=== PATIENT | male | born 1990 | race Two or more races ===

== ENCOUNTER 2020-02-07 11:17 | Emergency (ER) | payer MEDICAID ==
[2020-02-07] MEDS ORDERED: Lidocaine 1% 20 ML MDV INFILT ONE (11:18)
--- NOTE | 2020-02-07 11:45 | EDM.PDOC ---
ED HPI GENERAL MEDICAL PROBLEM - General Chief Complaint: Upper Extremity Injury/Pain Stated Complaint: finger laceration Time Seen by Provider: 02/07/20 11:40 Source of Information: Reports: Patient History Limitations: Reports: No Limitations - History of Present Illness INITIAL COMMENTS - FREE TEXT/NARRATIVE: 29-year-old male who was placing a trailer with [employer] onto a hitch and the hitch slipped forward and injured his proximal, palmar right fifth finger. It occurred approximately 11 AM today. He reports that the pain is now 7/10 and it is sharp and stinging. He has full active range of motion in the right hand and right fifth finger. The bleeding has been controlled with direct pressure. He has normal sensation in his fingers. There were no other injuries. There are no other associated signs or symptoms. There are no other modifying factors. Onset: Today (11 AM) Duration: Constant Location: Reports: Upper Extremity, Right (Right fifth finger) Quality: Reports: Sharp (And stinging) Improves with: Reports: Rest Worsens with: Reports: Other (Palpation) Context: Reports: Trauma Associated Symptoms: Reports: No Other Symptoms Treatments GENERAL COUNSEL: Reports: Other (see below) (Nothing) - Related Data Allergies Allergy/AdvReac Type Severity Reaction Status Date / Time No Known Allergies Allergy Verified 02/07/20 12:30 Past Medical History - Past Health History Medical/Surgical History: Denies Medical/Surgical History - Past Surgical History Other Surgical History Comment: No previous surgeries. Social & Family History - Tobacco Use Smoking Status *Q: Unknown Ever Smoked (Nonsmoker) - Alcohol Use Alcohol Use History: Yes Alcohol Use Frequency: Socially - Living Situation & Occupation Occupation: Employed (He is a [employer].) Review of Systems - Review of Systems Review Of Systems: See Below Constitutional: Reports: No Symptoms (Last tetanus immunization was one month ago so he is up-to-date.) Eyes: Reports: No Symptoms Ears: Reports: No Symptoms Nose: Reports: No Symptoms Mouth/Throat: Reports: No Symptoms Respiratory: Reports: No Symptoms Cardiovascular: Reports: No Symptoms GI/Abdominal: Reports: No Symptoms Genitourinary: Reports: No Symptoms Musculoskeletal: Reports: Hand Pain Skin: Reports: Wound (Laceration to right fifth finger) Neurological: Reports: No Symptoms ED EXAM, GENERAL - Physical Exam Exam: See Below Exam Limited By: No Limitations General Appearance: Alert, WD/WN, Mild Distress Eye Exam: Bilateral Eye: EOMI, Normal Inspection Ears: Normal External Exam, Hearing Grossly Normal Ear Exam: Bilateral Ear: Auricle Normal Nose: Normal Inspection, Normal Mucosa, No Blood Throat/Mouth: Normal Inspection, Normal Oropharynx, Normal Voice, No Airway Compromise Head: Atraumatic, Normocephalic Neck: Normal Inspection, Supple, Non-Tender, Full Range of Motion Respiratory/Chest: No Respiratory Distress, Lungs Clear, Normal Breath Sounds, No Accessory Muscle Use, Chest Non-Tender Cardiovascular: Normal Peripheral Pulses, Regular Rate, Rhythm, No Murmur Peripheral Pulses: 2+: Radial (L), Radial (R) GI/Abdominal: Normal Bowel Sounds, Soft, Non-Tender Back Exam: Normal Inspection Extremities: Normal Range of Motion, No Pedal Edema, Normal Capillary Refill, Other (Laceration to right fifth finger but he has no bony deformity and full range of motion in the right hand) Neurological: Alert, Oriented, CN II-XII Intact, Normal Cognition, No Motor/ Sensory Deficits Psychiatric: Normal Affect Skin Exam: Warm, Dry, No Rash, Ecchymosis, Wound/Incision ED TRAUMA EXTREMITY PROCEDURES - Laceration/Wound Repair Right Proximal Ventral Digit - 5th (Baby) Lac/Wound Length In cm: 6 Appearance: Subcutaneous, Moderately Contaminated Distal NVT: Neuro & Vascular Intact, No Tendon Injury Anesthetic Type: Local Local Anesthesia - Lidocaine (Xylocaine): 1% Plain Local Anesthetic Volume: Other (8 ml) Skin Prep: Saline Saline Irrigation (cc's): 750 Exploration/Debridement/Repair: Wound Explored, In a Bloodless Field, Explored to Base, No Foreign Material Found Closed With: Sutures Suture Size: 4-0 # of Sutures: 8 Suture Type: Nylon, Interrupted, Simple Drain Placement: No Sterile Dressing Applied: Nurse Tetanus Status Addressed: Yes (Patient was up-to-date with tetanus immunization status.) Complications: No Progress/Comments: After informed verbal consent, proximal right fifth finger laceration was repaired as above. There was no tendon injury. He had full function in his right fifth finger and hand. No bony deformity or abnormality noted. Course - Orders/Labs/Meds Meds: Medications Discontinued Medications Generic Name Dose Route Start Last Admin Trade Name Freq PRN Reason Stop Dose Admin Bacitracin 1 dose 02/07/20 12:30 Bacitracin Oint 1 Gm TOP 02/07/20 12:31 ONETIME ONE - Re-Assessments/Exams Free Text/Narrative Re-Assessment/Exam: 02/07/20 12:30: The right fifth finger laceration was repaired and the patient tolerated this well. An appropriate supportive dressing was applied by the nursing staff with bacitracin. Precautions and reasons for return to the emergency department were discussed with the patient to his discharge and were detailed in his discharge instructions. Departure - Departure Time of Disposition: 12:40 Disposition: Home, Self-Care 01 Condition: Good (Improved) Clinical Impression: Contusion of right hand, initial encounter Laceration of finger, little Qualifiers: Encounter type: initial encounter Damage to nail status: without damage Foreign body presence: without foreign body Laterality: right Qualified Code(s) : S61.216A - Laceration without foreign body of right little finger without damage to nail, initial encounter - Discharge Information Instructions: Hand Contusion, [id number], Crush Injury of the Hand, Easy-to- Read, Laceration Care, Adult, [id number], Sutures, [place], or Adhesive Wound Closure, [id number] Forms: ED Department Discharge Additional Instructions: Do not get the wound wet for the next 3 days. After 3 days, you may get the wound wet but do not immerse the wound in water until the sutures are out. Suture removal in 10 days. No strenuous use with the right hand for the next 2 weeks and be careful using your hand for the next month. Back to the emergency department for marked increase in pain, redness, increased swelling or any other concerning sign or symptom. Sepsis Event Note - Focused Exam Date Exam was Performed: 02/07/20 Time Exam was Performed: 13:19
[2020-02-07] MEDS ORDERED: Bacitracin Oint 1 GM U/D Packet TOP ONE (12:30)
== END 2020-02-07 12:55 | disposition home or self-care (01) ==
LOC: FB.ED 11:17
DX: S61.216A Laceration without foreign body of right little finger without damage to nail, initial encounter (principal); S60.221A Contusion of right hand, initial encounter; W01.0XXA Fall on same level from slipping, tripping and stumbling without subsequent striking against object, initial encounter
CPT/HCPCS: 12002; 99282; J2001

== ENCOUNTER 2021-04-03 04:50 | Emergency (ER) | payer MEDICAID ==
--- NOTE | 2021-04-03 05:17 | EDM.PDOC ---
ED HPI GENERAL MEDICAL PROBLEM - General Chief Complaint: Eye Problems Stated Complaint: CANT SEE AND EYES ARE BURNING Time Seen by Provider: 04/03/21 05:11 Source of Information: Reports: Patient History Limitations: Reports: No Limitations - History of Present Illness INITIAL COMMENTS - FREE TEXT/NARRATIVE: Awoke with bilateral blurred vision, eye burning and watering this morning. Patient does wear contacts, but took them out before sleep. He denies injury to the eyes. Onset: Today Bilateral Eye Pain Score (Numeric/FACES): 2 - Related Data Allergies Allergy/AdvReac Type Severity Reaction Status Date / Time No Known Allergies Allergy Verified 04/03/21 05:08 Home Meds: Home Meds NK [No Known Home Meds] 02/07/20 [History] Past Medical History - Past Health History Medical/Surgical History: Denies Medical/Surgical History - Past Surgical History Other Surgical History Comment: No previous surgeries. Social & Family History - Living Situation & Occupation Occupation: Employed (He is a [employer].) ED ROS GENERAL - Review of Systems Review Of Systems: Comprehensive ROS is negative, except as noted in HPI. ED EXAM GENERAL W FULL EYE - Physical Exam Exam: See Below Exam Limited By: No Limitations General Appearance: Alert, WD/WN, No Apparent Distress Eye Exam: Bilateral Eye: EOMI, PERRL IOP Measure with (Equipment): Other ([facility] not equipped with a Tonometer) Eyelids: Bilateral: Normal Appearance Conjunctiva & Sclera: Bilateral: Injected Cornea Exam: Bilateral: Normal Appearance, Examined with Flourescein Extraocular Movements: Bilateral: Intact Pupils: Normal Accommodation Pupillary Size: Bilateral: 3 mm Pupillary Reaction: Bilateral: Brisk Anterior Chamber: Bilateral: Normal Appearance Posterior Chamber: Bilateral: Unable to Examine Ears: Normal External Exam Nose: Normal Inspection Throat/Mouth: No Airway Compromise Head: Atraumatic, Normocephalic Respiratory/Chest: No Respiratory Distress Neurological: Alert, Normal Cognition Psychiatric: Normal Affect, Normal Mood Skin Exam: Warm, Dry, Intact Course - Vital Signs Last Recorded V/S: Last Vital Signs Temp 36.7 C 04/03/21 05:08 Pulse 53 L 04/03/21 05:08 Resp 18 04/03/21 05:08 BP 129/70 04/03/21 05:08 Pulse Ox 98 04/03/21 05:08 - Re-Assessments/Exams Free Text/Narrative Re-Assessment/Exam: 04/03/21 05:15 Sent home with Sulfacetamide ophthalmic laxmi'n 10% instructed to instill 1-2 gtt qid x 7 days. Departure - Departure Time of Disposition: 05:14 Disposition: Home, Self-Care 01 Condition: Good Clinical Impression: Conjunctivitis Qualifiers: Conjunctivitis type: acute Acute conjunctivitis type: unspecified Laterality: bilateral Qualified Code(s): H10.33 - Unspecified acute conjunctivitis, bilateral - Discharge Information *PRESCRIPTION DRUG MONITORING PROGRAM REVIEWED*: No *COPY OF PRESCRIPTION DRUG MONITORING REPORT IN PATIENT ZAIRA: Not Applicable Instructions: Bacterial Conjunctivitis, Adult, Vnqq-[id number] Forms: ED Department Discharge Additional Instructions: Instill Sulfacetamide 1-2 drops four times a day for 7 days. Follow up with Optometry or Ophthalmology in 1-2 days. Do not wear your contacts until otherwise instructed to do so by an student development specialist. Sepsis Event Note (ED) - Evaluation Sepsis Screening Result: No Definite Risk - Focused Exam Vital Signs: Vital Signs Temp Pulse Resp BP Pulse Ox 04/03/21 05:08 36.7 C 53 L 18 129/70 98
== END 2021-04-03 05:18 | disposition home or self-care (01) ==
LOC: FB.ED 04:50
DX: H10.33 Unspecified acute conjunctivitis, bilateral (principal)
CPT/HCPCS: 99282; 99283

== ENCOUNTER 2021-08-30 18:12 | Emergency (ER) | payer MEDICAID ==
[2021-08-30] MEDS ORDERED: Ondansetron 4 MG Tab.DIS PO ONE (18:13)
--- NOTE | 2021-08-30 18:25 | EDM.PDOC ---
ED HPI GENERAL MEDICAL PROBLEM - General Stated Complaint: VOMITING, STOMACH PAINS Time Seen by Provider: 08/30/21 18:25 Source of Information: Reports: Patient History Limitations: Reports: No Limitations - History of Present Illness INITIAL COMMENTS - FREE TEXT/NARRATIVE: 30-year-old male who reports was feeling good all through the day yesterday and last night when he went to bed and had eaten and drank normally prior to going to bed and then at approximately 1 AM he awoke with central crampy abdominal pain and vomiting and he has continued to have pain and vomiting with vomiting 10+ and a centrally located crampy abdominal pain that he rates as a 7/10. He states that it seems to come in waves and it is continually there but there is a waxing and waning worsening. He had a normal bowel movement today and has had no diarrhea associated with this. Was no blood in his emesis. The pain has stayed central and has not moved. There is no back or flank pain. No dysuria or hematuria. No cough or nasal congestion. No sore throat. No sick contacts. No trauma to his abdomen. There are no other associated signs or symptoms. There are no other modifying factors. Onset: Today Duration: Constant (Not improving.) Location: Reports: Abdomen Quality: Reports: Sharp (And crampy.) Severity: Moderate (to severe.) Improves with: Reports: None Worsens with: Reports: Eating (When trying to drink or eat.) Context: Reports: Other (As above.) Associated Symptoms: Reports: No Other Symptoms (Except as above. He does have a temperature of 100F here.) Treatments LABORATORY CHEMIST: Reports: Other (see below) (Nothing.) abdomen Pain Score (Numeric/FACES): 6 - Related Data Allergies Allergy/AdvReac Type Severity Reaction Status Date / Time hydromorphone [From Dilaudid] Allergy Nausea and Verified 08/30/21 19:23 Vomiting Home Meds: Home Meds NK [No Known Home Meds] 02/07/20 [History] Past Medical History - Past Health History Medical/Surgical History: Denies Medical/Surgical History - Past Surgical History Other Surgical History Comment: No previous surgeries. Social & Family History - Tobacco Use Tobacco Use Status *Q: Unknown Ever Used Tobacco (Nonsmoker) - Caffeine Use Caffeine Use: Reports: Coffee - Alcohol Use Alcohol Use History: Yes Alcohol Use Frequency: Weekly (1-2 times a week) - Living Situation & Occupation Occupation: Employed (He is a [employer].) ED ROS GENERAL - Review of Systems Review Of Systems: See Below Constitutional: Denies: Fever (Although he did have a temp of 100F here.), Chills, Diaphoresis HEENT: Denies: Throat Pain, Throat Swelling Respiratory: Denies: Shortness of Breath, Cough Cardiovascular: Denies: Chest Pain, Lightheadedness GI/Abdominal: Reports: Abdominal Pain, Nausea, Vomiting. Denies: Diarrhea : Denies: Dysuria, Hematuria Musculoskeletal: Denies: Neck Pain, Back Pain Skin: Denies: Diaphoresis, Rash Neurological: Denies: Dizziness, Numbness Hematologic/Lymphatic: Denies: Easy Bleeding, Easy Bruising ED EXAM, GI/ABD - Physical Exam Exam: See Below Exam Limited By: No Limitations General Appearance: Alert, WD/WN, Moderate Distress (Appears in acute pain.) Eyes: Bilateral: Normal Appearance, EOMI Ears: Normal External Exam, Hearing Grossly Normal Nose: Normal Inspection, Normal Mucosa, No Blood Throat/Mouth: Normal Lips, Normal Voice, No Airway Compromise, Other (Dry mucous membranes. No posterior pharyngeal erythema.) Head: Atraumatic, Normocephalic Neck: Normal Inspection, Supple, Non-Tender, Full Range of Motion Respiratory/Chest: No Respiratory Distress, Lungs Clear, Normal Breath Sounds, No Accessory Muscle Use, Chest Non-Tender Cardiovascular: Normal Peripheral Pulses, Regular Rate, Rhythm, No Edema GI/Abdominal Exam: Normal Bowel Sounds, Soft, No Distention, Tender (In the periumbilical area. Nontender elsewhere in his abdomen.) Back Exam: Normal Inspection, Full Range of Motion. No: CVA Tenderness (R), CVA Tenderness (L) Extremities: Normal Inspection, Normal Range of Motion, Non-Tender, No Pedal Edema, Normal Capillary Refill Neurological: Alert, Oriented, CN II-XII Intact, Normal Cognition, No Motor/Sensory Deficits Psychiatric: Normal Affect Skin Exam: Warm, Dry, Intact, Normal Color, No Rash Course - Vital Signs Last Recorded V/S: Last Vital Signs Temp 37.9 C 08/30/21 18:30 Pulse 87 08/30/21 18:30 Resp 16 08/30/21 18:30 BP 154/84 H 08/30/21 18:30 Pulse Ox 6 L 08/30/21 18:30 - Orders/Labs/Meds Orders: Active Orders 24 hr Category Date Time Status Abdomen Pelvis w Cont [CT] Stat Exams 08/30/21 20:02 Taken Sodium Chloride 0.9% [Normal Saline] 1,000 ml Med 08/30/21 19:00 Active IV ASDIRECTED Sodium Chloride 0.9% [Saline Flush] Med 08/30/21 18:59 Active 10 ml FLUSH ASDIRECTED PRN Peripheral IV Insertion Adult [OM.PC] Routine Oth 08/30/21 18:59 Ordered Medication Orders Sodium Chloride (Normal Saline) 1,000 mls @ 150 mls/hr IV ASDIRECTED KATERINE Sodium Chloride (Sodium Chloride 0.9% 10 Ml Syringe) 10 ml FLUSH ASDIRECTED PRN PRN Reason: Keep Vein Open Last Admin: 08/30/21 19:18 Dose: 10 ml Documented by: JEWEL Labs: Laboratory Tests 08/30/21 08/30/21 08/30/21 Range/Units 19:22 19:22 19:22 WBC 7.1 (3.2-10.1) x10-3/uL RBC 5.72 (3.90-5.90) x10(6)uL Hgb 15.3 (12.9-17.7) g/dL Hct 45.8 (38.3-50.1) % MCV 80.1 L (80.8-98.7) fL MCH 26.8 L (27.0-33.3) pg MCHC 33.5 (28.7-35.3) g/dL RDW 13.3 (12.4-15.0) % Plt Count 210 (117-477) x10(3)uL MPV 8.1 (6.7-11.0) fL Neut % (Auto) 80.5 H (40.3-71.8) % Lymph % (Auto) 10.9 L (15.8-45.3) % [place] % (Auto) 8.1 (5.5-15.2) % Eos % (Auto) 0.4 (0.1-6.8) % Baso % (Auto) 0.1 L (0.3-3.8) % Neut # (Auto) 5.7 (1.7-6.9) x10-3/uL Lymph # (Auto) 0.8 (0.5-4.5) x10-3/uL [place] # (Auto) 0.6 (0.0-1.2) x10-3/uL Eos # (Auto) 0.0 (0.0-0.6) x10-3/uL Baso # (Auto) 0.0 (0.0-0.3) x10-3/uL Sodium 138 (135-145) mmol/L Potassium 3.6 (3.5-5.3) mmol/L Chloride 102 (100-110) mmol/L Carbon Dioxide 27 (21-32) mmol/L BUN 16 (7-18) mg/dL Creatinine 0.8 (0.70-1.30) mg/dL Est Cr Clr Drug Dosing 145.11 mL/min Estimated GFR (MDRD) > 60 (>60) BUN/Creatinine Ratio 20.0 (9-20) Glucose 103 (80-116) mg/dL Calcium 8.7 (8.6-10.2) mg/dL Magnesium 1.8 (1.8-2.5) mg/dL Total Bilirubin 1.0 (0.1-1.3) mg/dL AST 23 (5-25) IU/L ALT 69 H (12-36) U/L Alkaline Phosphatase 87 (56-112) IU/L C-Reactive Protein 1.1 H (0.5-0.9) mg/dL Total Protein 7.8 (6.0-8.0) g/dL Albumin 4.4 (3.5-5.2) g/dL Globulin 3.4 g/dL Albumin/Globulin Ratio 1.3 Lipase 130 (73-393) U/L Urine Color (YELLOW) Urine Appearance (CLEAR) Urine pH (5.0-6.5) Ur Specific [place] (1.010-1.025) Urine Protein (NEGATIVE) mg/dL Urine Glucose (UA) (NORMAL) mg/dL Urine Ketones (NEGATIVE) mg/dL Urine Occult Blood (NEGATIVE) Urine Nitrite (NEGATIVE) Urine Bilirubin (NEGATIVE) Urine Urobilinogen (NEGATIVE) mg/dL Ur Leukocyte Esterase (NEGATIVE) Urine RBC (0-5) Urine WBC (0-5) Ur Squamous Epith Cells (NS,R,O) Urine Bacteria (NS) 08/30/21 Range/Units 20:38 WBC (3.2-10.1) x10-3/uL RBC (3.90-5.90) x10(6)uL Hgb (12.9-17.7) g/dL Hct (38.3-50.1) % MCV (80.8-98.7) fL MCH (27.0-33.3) pg MCHC (28.7-35.3) g/dL RDW (12.4-15.0) % Plt Count (117-477) x10(3)uL MPV (6.7-11.0) fL Neut % (Auto) (40.3-71.8) % Lymph % (Auto) (15.8-45.3) % [place] % (Auto) (5.5-15.2) % Eos % (Auto) (0.1-6.8) % Baso % (Auto) (0.3-3.8) % Neut # (Auto) (1.7-6.9) x10-3/uL Lymph # (Auto) (0.5-4.5) x10-3/uL [place] # (Auto) (0.0-1.2) x10-3/uL Eos # (Auto) (0.0-0.6) x10-3/uL Baso # (Auto) (0.0-0.3) x10-3/uL Sodium (135-145) mmol/L Potassium (3.5-5.3) mmol/L Chloride (100-110) mmol/L Carbon Dioxide (21-32) mmol/L BUN (7-18) mg/dL Creatinine (0.70-1.30) mg/dL Est Cr Clr Drug Dosing mL/min Estimated GFR (MDRD) (>60) BUN/Creatinine Ratio (9-20) Glucose (80-116) mg/dL Calcium (8.6-10.2) mg/dL Magnesium (1.8-2.5) mg/dL Total Bilirubin (0.1-1.3) mg/dL AST (5-25) IU/L ALT (12-36) U/L Alkaline Phosphatase (56-112) IU/L C-Reactive Protein (0.5-0.9) mg/dL Total Protein (6.0-8.0) g/dL Albumin (3.5-5.2) g/dL Globulin g/dL Albumin/Globulin Ratio Lipase (73-393) U/L Urine Color Yellow (YELLOW) Urine Appearance Clear (CLEAR) Urine pH 5.0 (5.0-6.5) Ur Specific [place] 1.020 (1.010-1.025) Urine Protein Trace (NEGATIVE) mg/dL Urine Glucose (UA) Normal (NORMAL) mg/dL Urine Ketones 15 H (NEGATIVE) mg/dL Urine Occult Blood Trace (NEGATIVE) Urine Nitrite Negative (NEGATIVE) Urine Bilirubin Negative (NEGATIVE) Urine Urobilinogen Normal (NEGATIVE) mg/dL Ur Leukocyte Esterase Negative (NEGATIVE) Urine RBC 0-5 (0-5) Urine WBC 0-5 (0-5) Ur Squamous Epith Cells Rare (NS,R,O) Urine Bacteria Occasional H (NS) Meds: Medications Generic Name Dose Route Start Last Admin Trade Name Vinny PRN Reason Stop Dose Admin Sodium Chloride 1,000 mls @ 150 mls/hr 08/30/21 19:00 Normal Saline IV ASDIRECTED KATERINE Sodium Chloride 10 ml 08/30/21 18:59 08/30/21 19:18 Sodium Chloride 0.9% 10 Ml Syringe FLUSH 10 ml ASDIRECTED PRN Administration Keep Vein Open Discontinued Medications Generic Name Dose Route Start Last Admin Trade Name Vinny PRN Reason Stop Dose Admin Hydromorphone HCl 1 mg 08/30/21 19:00 08/30/21 19:17 Hydromorphone 2 Mg/Ml Sdv IVPUSH 08/30/21 19:01 1 mg ONETIME ONE Administration Sodium Chloride 1,000 mls @ 999 mls/hr 08/30/21 19:00 08/30/21 19:18 Normal Saline IV 08/30/21 20:00 999 mls/hr .BOLUS ONE Administration Iopamidol 100 ml 08/30/21 20:11 08/30/21 20:31 Iopamidol 755 Mg/Ml 100 Ml Bottle IV 08/30/21 20:12 100 ml . DIRECTED ONE Administration Metoclopramide HCl 10 mg 08/30/21 19:17 08/30/21 19:27 Metoclopramide 10 Mg/2 Ml Sdv IVPUSH 08/30/21 19:18 10 mg ONETIME ONE Administration Ondansetron HCl 4 mg 08/30/21 19:00 08/30/21 19:17 Ondansetron 4 Mg/2 Ml Sdv IVPUSH 08/30/21 19:01 4 mg ONETIME ONE Administration - Radiology Interpretation Free Text/Narrative:: CT scan of the abdomen and pelvis shows no kidney stones or obstructive uropathy. There is a normal appendix. And it is a negative CT abdomen and pelvis with intravenous contrast per the [facility] radiologist. - Re-Assessments/Exams Free Text/Narrative Re-Assessment/Exam: 08/30/21 20:00: What blood cell count is 7.1. Hemoglobin is 15.3. White count is normal. Sodium is 138. Potassium is 3.6. Bicarbonate was 27. BUN is 16 and creatinine is 0.8. Glucose is 103. AST is 69. Lipase is normal. A CRP is mildly elevated at 1.1. The patient has received Dilaudid and Zofran IV. Initially when he thought the Dilaudid he felt quite bad after this with some pretty severe nausea but no further emesis and he states he didn't really like to wait and that made him feel and then these symptoms seemed to pass and he became basically abdominal pain-free and nausea free. Feeling much improved at this point. He does have a mildly elevated CRP and the pain pattern that he was describing a concerning one and therefore I will be sending him for CT scan of his abdomen and pelvis with IV contrast. I am awaiting the patient's urinalysis. 08/30/21 21:05: The patient remains pain-free and feels much improved. His abdominal exam is benign. He is back from CT scan but we are awaiting the official results. His urinalysis came back and it was negative. We will continue monitoring the patient and I am awaiting the CT scan results. 08/30/21 21:38: Patient feels much improved. His abdomen is nontender and completely benign on exam. The CT scan of his abdomen and pelvis was read as negative by the radiologist. I am unsure what why he was having the pain earlier in why he had the protracted vomiting. All of his lab tests are reassuringly normal. The CT scan was reassuringly normal as well. His exam is now normal. I feel, at this point, that he will be able to be discharged home with continued observation at home rest and fluids tonight and then advance diet as tolerated tomorrow. I discussed all this with the patient 10 he is comfortable with this plan and is very much wanting to be discharged home at this point. Departure - Departure Time of Disposition: 21:47 Disposition: Home, Self-Care 01 Condition: Good (Improved) Clinical Impression: Abdominal pain of unknown etiology, Dehydration Vomiting Qualifiers: Vomiting type: unspecified Vomiting Intractability: intractable Nausea presence: with nausea Qualified Code(s): R11.2 - Nausea with vomiting, unspecified - Discharge Information Instructions: Dehydration, Adult, [id number], Abdominal Pain, Adult, [id number], Nausea and Vomiting, Adult, [id number] Referrals: PCP,None [Primary Care Provider] - Additional Instructions: All of your blood tests were reassuring. Your urine test was normal. The CT scan of your abdomen and pelvis showed no abnormality and specifically did not show anything that would be causing your abdominal pain and vomiting. I am unsure why you're having the abdominal pain and vomiting but it has completely resolved now and your exam is now very reassuring. You should rest. He should stick with liquids tonight and then tomorrow you can advance your diet as tolerated. I have given you a take-home pack of Zofran) antinausea medications) that you can use as needed for nausea or mild stomach cramping. Back to the emergency department for unrelenting vomiting, worsening abdominal pain, blood in your vomit or in your stool, severe weakness or any other concerning signs or symptoms. Sepsis Event Note (ED) - Focused Exam Vital Signs: Vital Signs Temp Pulse Resp BP Pulse Ox 08/30/21 18:30 37.9 C 87 16 154/84 H 6 L - My Orders Last 24 Hours: My Active Orders 08/30/21 18:59 Sodium Chloride 0.9% [Saline Flush] 10 ml FLUSH ASDIRECTED PRN Peripheral IV Insertion Adult [OM.PC] Routine 08/30/21 19:00 Sodium Chloride 0.9% [Normal Saline] 1,000 ml IV ASDIRECTED 08/30/21 20:02 Abdomen Pelvis w Cont [CT] Stat - Assessment/Plan Last 24 Hours: My Active Orders 08/30/21 18:59 Sodium Chloride 0.9% [Saline Flush] 10 ml FLUSH ASDIRECTED PRN Peripheral IV Insertion Adult [OM.PC] Routine 08/30/21 19:00 Sodium Chloride 0.9% [Normal Saline] 1,000 ml IV ASDIRECTED 08/30/21 20:02 Abdomen Pelvis w Cont [CT] Stat
[2021-08-30] MEDS ORDERED: Sodium Chloride 0.9% 10 ML Syringe FLUSH PRN (18:59)
[2021-08-30] MEDS ORDERED: Sodium Chloride 0.9% 1,000 ML IV ONE (19:00)
[2021-08-30] MEDS ORDERED: Ondansetron 4 MG/2 ML SDV IVPUSH ONE (19:00)
[2021-08-30] MEDS ORDERED: Sodium Chloride 0.9% 1,000 ML IV SCH (19:00)
[2021-08-30] MEDS ORDERED: HYDROmorphone 2 MG/ML SDV IVPUSH ONE (19:00)
[2021-08-30] MEDS ORDERED: Metoclopramide 10 MG/2 ML SDV IVPUSH ONE (19:17)
[2021-08-30] MEDS ORDERED: Iopamidol 755 Mg/ML 100 ML Bottle IV ONE (20:11)
== END 2021-08-30 21:54 | disposition home or self-care (01) ==
LOC: FB.ED 18:12
DX: R10.33 Periumbilical pain (principal); R11.2 Nausea with vomiting, unspecified; E86.0 Dehydration; Z88.5 Allergy status to narcotic agent
CPT/HCPCS: 36415; 74177; 80053; 81001; 83690; 83735; 85025; 86140; 96374; 96375; 99284-25; A9270-GY; J1170; J2405; J2765; J7030; Q9967